=== PATIENT | male | born 1955 | race Caucasian/White ===

== ENCOUNTER → 2016-11-12 | Outpatient (CLI) | payer BC ==
--- NOTE | 2016-11-12 12:12 | CR ---
EXAMINATION: Bilateral knees HISTORY: Pain COMPARISON: None TECHNIQUE: 4 views FINDINGS: Moderate to severe joint space narrowing is noted within the medial compartments bilateral ly. Osteophyte formation is noted. No fracture or acute osseous abnormality. Severe prepatellar soft tissue thickening is noted. No joint effusion. No acute osseous abnormality. IMPRESSION: 1. Severe degenerative changes noted within the medial compartment. 2. Prominent prepatellar soft tissue thickening, correlate for bursitis.
== END ==
LOC: MW.CHORTHO 08:01
PROVIDERS: ATTEND Physician Assistant
DX: M25.561 Pain in right knee (principal); M79.89 Other specified soft tissue disorders
CPT/HCPCS: 73564-26-RT; 73564-RT

== ENCOUNTER 2018-10-12 08:24 | Day surgery (SDC) | payer MEDICARE, BC ==
[~2018-10-12 08:24] MED LIST: Acetaminophen/HYDROcodone 325-5 MG Tab PO PRN; Lactated Ringers 1,000 ML IV SCH; ceFAZolin 2 GM in Premix Bag 1 BAG IV SCH
--- NOTE | 2018-10-12 09:07 | PCM.PREANE ---
Preanesthetic Assessment - Anesthesia/Transfusion/Family Hx Anesthesia History: Prior Anesthesia Without Reaction Family History of Anesthesia Reaction: No Transfusion History: No Prior Transfusion(s) - Review of Systems General: No Symptoms Pulmonary: No Symptoms Cardiovascular: No Symptoms Gastrointestinal: No Symptoms Neurological: No Symptoms Other: Reports: None - Physical Assessment NPO Status Date: 10/11/18 NPO Status Time: 20:00 O2 Sat by Pulse Oximetry: 98 Respiratory Rate: 18 Vital Signs: Last Vital Signs Temp 97.5 F 10/12/18 08:41 Pulse 87 10/12/18 08:41 Resp 18 10/12/18 08:41 BP 127/73 10/12/18 08:41 Pulse Ox 98 10/12/18 08:41 Height: 5 ft 10 in Weight: 87.09 kg ASA Class: 1 Mental Status: Alert & Oriented x3 Airway Class: Mallampati = 1 Dentition: Reports: Normal Dentition ROM/Head Extension: Full Lungs: Clear to Auscultation, Normal Respiratory Effort Cardiovascular: Regular Rate, Regular Rhythm - Allergies Allergies/Adverse Reactions: Allergies Allergy/AdvReac Type Severity Reaction Status Date / Time No Known Allergies Allergy Verified 10/07/18 16:06 - Blood Blood Available: No - Anesthesia Plan Pre-Op Medication Ordered: None - Acknowledgements Anesthesia Type Planned: General Anesthesia Pt an Appropriate Candidate for the Planned Anesthesia: Yes Alternatives and Risks of Anesthesia Discussed w Pt/Guardian: Yes Pt/Guardian Understands and Agrees with Anesthesia Plan: Yes Additional Comments: PMH: none PLAN: [email or web address] PreAnesthesia Questionnaire HEENT History: Reports: Other (See Below) Other HEENT History: wears glasses Gastrointestinal History: Reports: None Musculoskeletal History: Reports: Arthritis - Past Surgical History HEENT Surgical History: Reports: Tonsillectomy GI Surgical History: Reports: Hernia, Inguinal - SUBSTANCE USE Smoking Status *Q: Never Smoker Days Per Week of Alcohol Use: 7 Number of Drinks Per Day: 1 Total Drinks Per Week: 7 Recreational Drug Use History: No - HOME MEDS Home Medications: Home Meds . [No Known Home Meds] 10/07/18 [History] - CURRENT (IN HOUSE) MEDS Current Meds: Current Medications Hydrocodone Bitart/Acetaminophen ([place] 325-5 Mg) 1 - 2 tab PO Q4H PRN PRN Reason: Pain Cefazolin Sodium/Dextrose 2 gm (/ Premix) 50 mls @ 100 mls/hr IV ONCALL RIANA Lactated Ringer's (Ringers, Lactated) 1,000 mls @ 100 mls/hr IV ASDIRECTED [facility] Last Admin: 10/12/18 08:45 Dose: 100 mls/hr
--- NOTE | 2018-10-12 09:50 | PCM.OPNOTE ---
- General Post-Op/Procedure Note Date of Surgery/Procedure: 10/12/18 Operative Procedure(s): Excision left olecranon bursa Post-Op Diagnosis: Recurrent left olecranon bursitis Anesthesia Technique: General LMA Primary Surgeon: Steffi Snider Salesperson Stereo Equipment: Darlin Perez in mLs: 10 Condition: Good Free Text/Narrative:: tt=15 min #[id number]
[2018-10-12] MEDS ORDERED: Lidocaine 2% 5 ML SDV ONE (10:24)
[2018-10-12] MEDS ORDERED: Ondansetron 4 MG/2 ML SDV ONE (10:24)
[2018-10-12] MEDS ORDERED: fentaNYL 250 MCG/5 ML SDV ONE (10:24)
[2018-10-12] MEDS ORDERED: Midazolam 1 MG/ML 2 ML SDV ONE (10:24)
[2018-10-12] MEDS ORDERED: Propofol 200 MG/20 ML SDV ONE (10:24)
[2018-10-12] MEDS ORDERED: ceFAZolin 1 GM Vial ONE (11:02)
[2018-10-12] MEDS ORDERED: Sodium Chloride 0.9% 20 ML ONE (11:02)
[2018-10-12] MEDS ORDERED: ePHEDrine 50 MG/ML SDV ONE (11:05)
[2018-10-12] MEDS ORDERED: EPINEPHrine 1 MG/ML 30 ML MDV IVPUSH PRN (11:26)
[2018-10-12] MEDS ORDERED: Atropine 0.4 MG/ML SDV IVPUSH PRN (11:26)
[2018-10-12] MEDS ORDERED: Naloxone 0.4 MG/ML Syringe IVPUSH PRN (11:26)
[2018-10-12] MEDS ORDERED: 50% Dextrose in Water 50 ML Syringe IVPUSH PRN (11:26)
[2018-10-12] MEDS ORDERED: Atropine 0.4 MG/ML 20 ML MDV IVPUSH PRN (11:26)
[2018-10-12] MEDS ORDERED: Albuterol 0.083% 2.5 MG/3 ML Neb Soln NEB PRN (11:26)
[2018-10-12] MEDS ORDERED: fentaNYL 100 MCG/2 ML SDV IVPUSH PRN (11:26)
--- NOTE | 2018-10-12 12:00 | PCM.POSTAN ---
POST ANESTHESIA ASSESSMENT - MENTAL STATUS Mental Status: Alert, Oriented - RESPIRATORY Respiratory Status: Respiratory Rate WNL, Airway Patent, O2 Saturation Stable - CARDIOVASCULAR CV Status: Pulse Rate WNL, Blood Pressure Stable - GASTROINTESTINAL GI Status: No Symptoms - PAIN Pain Score: 0 - POST OP HYDRATION Hydration Status: Adequate & Stable
--- NOTE | 2018-10-12 12:46 | PCM48HPAN ---
Post Anesthesia Note - EVALUATION WITHIN 48HRS OF ANESTHETIC Vital Signs in Normal Range: Yes Patient Participated in Evaluation: Yes Respiratory Function Stable: Yes Airway Patent: Yes Cardiovascular Function Stable: Yes Hydration Status Stable: Yes Pain Control Satisfactory: Yes Nausea and Vomiting Control Satisfactory: Yes Mental Status Recovered: Yes Resp Rate: 16
--- NOTE | 2018-10-12 12:49 | OR ---
SURGEON: Steffi Snider MD DATE OF PROCEDURE: 10/12/2018 PREOPERATIVE DIAGNOSIS: Left septic olecranon bursitis. POSTOPERATIVE DIAGNOSIS: Left septic olecranon bursitis. PROCEDURE: Excision of left olecranon bursa. CONCHE OPERATOR: ARACELI Larose. ANESTHESIA: General. ESTIMATED BLOOD LOSS: 5 mL. TOURNIQUET TIME: 15 minutes. COMPLICATIONS: None. DVT PROPHYLAXIS: PAS boots to bilateral lower extremities. IMPLANTS USED: None. BRIEF HISTORY: Leroy is a 63-year-old male who has had complaint of persistent left olecranon bursitis. He has been followed by his primary care provider and has undergone multiple rounds of antibiotics. He continues to have persistent draining from the elbow. Due to his lack of response to conservative treatment, I did recommend surgical intervention. The risks and goals of procedure were discussed with the patient and were documented preoperatively. He agreed to proceed. DESCRIPTION OF PROCEDURE: The patient was properly identified and brought to the operating room. He was transferred from the OR cart and placed on the operating table in a supine position. General anesthesia was administered. After adequate anesthesia was obtained, a well-padded tourniquet was applied to the left upper extremity. The left upper extremity was then prepped in standard fashion using ChloraPrep solution. It was then sterilely draped. A time-out was performed to ensure correct site and procedure. Preoperative antibiotics were given. The surgical site had been marked preoperatively. The tourniquet was then inflated to 200 mmHg. An incision was made over the posterior aspect of the elbow with a slightly radial turn to help to avoid the ulnar nerve. There was a small pinpoint area of drainage measuring approximately 3 mm x 3 mm. This was excised in an elliptical fashion. Subcutaneous tissues were then incised. He had a thickened bursa present. A portion of the bursa was sent for culture. The thickened bursal wall was then excised. No significant fluid or purulent drainage was noted. Complete bursectomy was performed. Care was taken to not extend medially to injure the ulnar nerve. At the completion, the tissue appeared to be quite clean. It was then copiously irrigated with 1 L of normal saline. The tourniquet was then deflated. No excess bleeding was noted. The subcutaneous tissues were closed with 2-0 Monocryl, and the skin was closed with elda. No significant drain was noted. I elected not to put a drain in place. Xeroform gauze was then placed over the wound and a bulky dressing was applied. He was awakened from his anesthetic and transferred back to the operating room cart. He was brought to recovery room in stable condition. All needle and sponge counts were correct. MIR / MIRIAM /[id number]
== END 2018-10-12 12:45 | disposition home or self-care (01) ==
LOC: MW.SDS 08:24
PROVIDERS: ATTEND Orthopaedic Surgery
DX: M71.121 Other infective bursitis, right elbow (principal)
CPT/HCPCS: 24105; 87070; 87075; J0690; J2001; J2250; J2405; J2704; J3010; J7120